=== PATIENT | male | born 1955 | race African-American/Black ===

== ENCOUNTER 2020-08-16 16:48 | Observation (INO) ==
[2020-08-16 18:33] LABS: Basophils % 0.2 % (0.0-0.8); Eosinophils # 0.4 10*3/uL (0.0-0.87); Eosinophils % 6.2 % (0.00-10.9); Hematocrit 37.9 VOL% (42.0-52.0); Hemoglobin 11.7 GM/DL (14.0-18.0); Immature Granulocytes % 0.2 %; Immature Granulocytes Absolute 0.01 #; Lymphocytes # 1.5 10*3/uL (1.4-4.0); Lymphocytes % 23.8 % (21.2-54.2); Mean Corpuscular HGB Conc 30.9 GM/DL (32-36); Mean Corpuscular Volume 94.3 FL (87-102); Mean Platelet Volume 11.5 FL (9.6-12.0); Monocytes % 7.1 % (1.7-12.7); Neutrophils % 62.5 % (38.7-73.9); Platelet Count 101 T/CUMM (130-400); Red Blood Count 4.02 MC/CUMM (3.8-5.5); Red Cell Distribution Width 13.2 % (9.3-17.3); White Blood Count 6.5 T/CUMM (4-12)
[2020-08-16] MEDS ORDERED: ONDANSETRON 4 MG/2 ML VIAL ONE (19:10)
[2020-08-16] MEDS ORDERED: fentaNYL 100 MCG/2 ML VIAL ONE ×2 (19:11→19:15)
[2020-08-16] MEDS ORDERED: VANCOMYCIN INJ 1,000 MG in SODIUM CHLORIDE 0.9% 250 ML IV STA (19:14)
[2020-08-16 20:05] LABS: Albumin 3.3 G/DL (3.4-5.0); Calcium 8.7 MG/DL (8.5-10.1); Osmolality,Calculated 277.5 MOS/KG (273-304); Total Protein 7.3 G/DL (6.4-8.3)
[2020-08-16] MEDS ORDERED: hydrALAZINE 20 MG/1 ML VIAL IV PRN (20:28)
[2020-08-16] MEDS ORDERED: ONDANSETRON 4 MG/2 ML VIAL IV PRN (20:28)
[2020-08-16] MEDS ORDERED: NICOTINE 21 MG/24 HR PATCH TRANSDERM PRN (20:28)
[2020-08-16] MEDS ORDERED: MORPHINE 4 MG/1 ML VIAL IV PRN (20:28)
[2020-08-16] MEDS ORDERED: ACETAMINOPHEN 325 MG TABLET PO PRN (20:28)
[2020-08-16] MEDS ORDERED: hydrOXYzine HCL 25 MG TABLET PO PRN (20:30)
[2020-08-16] MEDS ORDERED: hydrOXYzine HCL 10 MG TABLET PO PRN (20:30)
[2020-08-16] MEDS ORDERED: TRIAMCINOLONE ACETONIDE 0.5% TOP SCH (21:00)
[2020-08-16] MEDS: ENOXAPARIN 40 MG/0.4 ML SYRINGE SUBCUT SCH (21:03)
[2020-08-17] MEDS ORDERED: PERMETHRIN 5% CREAM 60 GM TUBE TOP SCH
[2020-08-17] MEDS: TRIAMCINOLONE 0.025% CREAM 15 GM TUBE TOP SCH ×4 (00:10→21:10)
[2020-08-17] MEDS: ACYCLOVIR 200 MG CAPSULE PO SCH ×3 (00:10→21:10)
[2020-08-17] MEDS: levETIRAcetam 250 MG TABLET PO SCH ×3 (00:13→21:25)
[2020-08-17] MEDS: SODIUM CHLORIDE 0.45% 1,000 ML IV SCH ×2 (00:23→18:13)
[2020-08-17 06:12] LABS: Basophils % 0.4 % (0.0-0.8); Eosinophils # 0.5 10*3/uL (0.0-0.87); Eosinophils % 10.6 % (0.00-10.9); Hematocrit 32.7 VOL% (42.0-52.0); Hemoglobin 10.6 GM/DL (14.0-18.0); Immature Granulocytes % 0.2 %; Immature Granulocytes Absolute 0.01 #; Lymphocytes # 1.6 10*3/uL (1.4-4.0); Mean Corpuscular HGB Conc 32.4 GM/DL (32-36); Mean Corpuscular Volume 92.4 FL (87-102); Mean Platelet Volume 11.9 FL (9.6-12.0); Neutrophils % 48.8 % (38.7-73.9); Platelet Count 94 T/CUMM (130-400); Red Blood Count 3.54 MC/CUMM (3.8-5.5); Red Cell Distribution Width 13.1 % (9.3-17.3)
[2020-08-17 06:34] LABS: Alanine Aminotransferase < 9 U/L (16-61); Albumin 3.1 G/DL (3.4-5.0); Alkaline Phosphatase 78 U/L (45-117); Aspartate Amino Transferase 8 U/L (0-37); Blood Urea Nitrogen 15 MG/DL (7-18); Calcium 8.2 MG/DL (8.5-10.1); Carbon Dioxide 20 MMOL/L (21-32); Estimated Glom Filtration Rate 109 ML/MIN; Glucose 84 MG/DL (74-106); HDL Cholesterol 36 MG/DL (40-60); Osmolality,Calculated 285.8 MOS/KG (273-304); Risk Ratio 3.14; Sodium 144 MMOL/L (136-145); Total Protein 6.9 G/DL (6.4-8.3); Triglycerides 45 MG/DL (2-150)
[2020-08-17] MEDS ORDERED: DIDANOSINE 400 MG PO SCH (09:00)
[2020-08-17] MEDS: predniSONE 20 MG TABLET PO SCH (09:47)
[2020-08-17] MEDS: CETIRIZINE 5 MG TABLET PO SCH (09:47)
[2020-08-17] MEDS: ASPIRIN EC 325 MG TABLET PO SCH (09:48)
[2020-08-17] MEDS: VERAPAMIL SR 120 MG TABLET PO SCH (09:48)
[2020-08-17] MEDS: VANCOMYCIN INJ 1,000 MG in SODIUM CHLORIDE 0.9% 250 ML IV SCH ×2 (09:48→21:17)
[2020-08-17] MEDS: LISINOPRIL/HCTZ 20-25 MG TABLET PO SCH (09:48)
[2020-08-17] MEDS: PANTOPRAZOLE 40 MG TABLET PO SCH (09:59)
[2020-08-17] MEDS: ENOXAPARIN 40 MG/0.4 ML SYRINGE SUBCUT SCH (21:09)
[2020-08-18] MEDS: SODIUM CHLORIDE 0.45% 1,000 ML IV SCH ×2 (07:56→12:30)
[2020-08-18] MEDS: ASPIRIN EC 325 MG TABLET PO SCH (10:47)
[2020-08-18] MEDS: LISINOPRIL/HCTZ 20-25 MG TABLET PO SCH (10:48)
[2020-08-18] MEDS: predniSONE 20 MG TABLET PO SCH (10:48)
[2020-08-18] MEDS: VERAPAMIL SR 120 MG TABLET PO SCH (10:48)
[2020-08-18] MEDS: levETIRAcetam 250 MG TABLET PO SCH (10:48)
[2020-08-18] MEDS: CETIRIZINE 5 MG TABLET PO SCH (10:49)
[2020-08-18] MEDS: PANTOPRAZOLE 40 MG TABLET PO SCH (10:49)
[2020-08-18] MEDS: ACYCLOVIR 200 MG CAPSULE PO SCH (10:49)
[2020-08-18] MEDS: VANCOMYCIN INJ 1,000 MG in SODIUM CHLORIDE 0.9% 250 ML IV SCH (11:04)
[2020-08-18] MEDS: TRIAMCINOLONE 0.025% CREAM 15 GM TUBE TOP SCH ×2 (11:07→16:24)
[2020-08-18 16:33] VITALS: BP 106/74
[2020-08-19 17:36] LABS: % CD4 (T Cells) 28 % (32-64); % CD8 (T Cells) 48 % (8-40); 4/8 Ratio 0.6 (>=0.9)
[2020-08-24] MEDS ORDERED: PERMETHRIN 5% CREAM 60 GM TUBE TOP SCH
== END 2020-08-18 19:03 | disposition home or self-care (01) ==
LOC: N.ED 16:48 → N.EDINP 16:48 → N.3E 22:59 → SUATTDRO 08-17 12:19
PROVIDERS: ADMIT Internal Medicine; ATTEND Internal Medicine